=== PATIENT | male | born 1945 | race Caucasian/White ===

== ENCOUNTER 2016-11-19 19:42 | Emergency (ER) | payer MEDICARE, OTHER ==
[~2016-11-19 19:42] MED LIST: ADVIL PO; ASAB PO; LIPITOR10 PO; LYRICA150 MG PO; MOBIC15 MG PO; MULTIVITAMI1 PO
[2016-11-21] MEDS ORDERED: ZOFRAN8 PO (01:16)
[2016-11-21] MEDS ORDERED: DIL2TAB PO (01:16)
[2016-11-21] MEDS ORDERED: FLOMAX4 PO (01:17)
[2016-11-21] MEDS ORDERED: LIPITOR10 PO (01:17)
[2016-11-21] MEDS ORDERED: MULTIVIT/MIN PO (01:18)
[2016-11-21] MEDS ORDERED: ASAB PO (01:18)
[2016-11-21] MEDS ORDERED: LYRICA150 MG PO (01:18)
[2016-11-22] MEDS ORDERED: PYR200 PO (11:01)
== END 2016-11-19 22:55 | disposition home or self-care (01) ==
LOC: ER 19:42
DX: G89.18 Other acute postprocedural pain (principal); R10.32 Left lower quadrant pain; Z87.442 Personal history of urinary calculi; G47.30 Sleep apnea, unspecified; G62.9 Polyneuropathy, unspecified; Z79.82 Long term (current) use of aspirin; Z79.899 Other long term (current) drug therapy
CPT/HCPCS: 96374; 96375; 96376; 99283; J1170; J2405